=== PATIENT | male | born 1950 | race Caucasian/White ===

== ENCOUNTER → 2020-09-07 | Outpatient (CLI) | payer OTHER ==
[~2020-09-07] MED LIST: ALLOPURINOL 30300 M1 PO; ATORVASTATIN CA80 MG PO; CEPHALEXIN500 MG PO; CINNAMON500 MG PO; FAMOTIDINE 20 M20 MG PO; FUROSEMIDE 40 M40 M1 PO; GABAPENTIN 100100 MG PO; LO-DOSE ASPIRIN81 M1 PO; LOSARTAN POTAS100 MG PO; MULTI VITAMIN1 EACH PO; NOVOLOG MI100 UNIT/M SUBQ; OMEGA-3 FISH1200 MG PO; POTASSIUM CHLO10 MEQ PO; VITAMIN D3100 MCG PO
== END ==
LOC: LAB 13:45
PROVIDERS: ATTEND Podiatrist
DX: Z01.812 Encounter for preprocedural laboratory examination (principal); Z20.828 Contact with and (suspected) exposure to other viral communicable diseases

== ENCOUNTER 2020-09-11 10:38 | Day surgery (SDC) | payer OTHER ==
[~2020-09-11] VITALS: Ht 180.3 cm; Wt 147.4 kg
--- NOTE | ~2020-09-11 | O ---
[facility] [place] [address] OPERATIVE REPORT Name: WENDY PEARSON Room #: DEP [facility]#: [id number] Admission: 09/11/20 Attend Phys: SHUKRI Briones Discharge: 09/11/20 Date of : 50 Report #: [id number] THIS REPORT FOR: cc: JADEN MEI Physician not on staff Nathanael Villanueva DPM ~ CC: JADEN Villanueva Physician staff DATE OF SERVICE: 09/11/2020 SURGEON: Nathanael Villanueva DPM. PREOPERATIVE DIAGNOSIS: Osteomyelitis, left foot. POSTOPERATIVE DIAGNOSIS: Osteomyelitis, left foot. PROCEDURE: Amputation of first toe and first metatarsal, left foot. ANESTHESIA: General endotracheal. HEMOSTASIS: Ankle tourniquet 250 mmHg. ESTIMATED BLOOD LOSS: Less than 5 mL. COMPLICATIONS: None. DESCRIPTION OF PROCEDURE: As follows: The patient was taken to the OR in satisfactory condition and placed on the table in the supine position. Following satisfactory administration of general endotracheal intubation anesthesia, a total of 15 mL of a 50:50 mixture of 1% plain lidocaine and 0.5% plain Marcaine was used around the first metatarsocuneiform joint and first toe in divided doses of the left foot. A well-padded ankle tourniquet was placed just proximal to the left ankle. The foot was then prepped and draped in the usual sterile manner. An Esmarch bandage was used to exsanguinate the left foot and the ankle tourniquet was inflated to 250 mmHg. Attention was then directed to the first toe where 2 semielliptical incisions converging on the dorsal and plantar aspect of the toe was made. The incision was deepened through sharp and blunt dissection. All bleeders were clamped and bovied as deemed necessary. The incision was carried down through the subcutaneous tissue to the level of the deep fascia. The extensor and flexor tendons were identified. They were retracted as distally as possible and transected proximally. The collateral ligaments on the medial and lateral aspect of the digit were transected. The toe was disarticulated and the toe was passed from the table. A linear incision was then made on the dorsal aspect of the left first metatarsal corresponding to [facility] [address] [place] [address] OPERATIVE REPORT Name: WENDY PEARSON Room #: DEP [employer]#: [id number] Admission: 09/11/20 Attend Phys: SHUKRI Briones Discharge: 09/11/20 Date of : 50 Report #: [id number] the previous scar. The incision was deepened through sharp and blunt dissection and all bleeders were clamped and bovied as deemed necessary. The incision was carried down to the level of bone medial to the course of the extensor tendon. It was noted that the bone was soft in nature and significant dense scar tissue was noted. The tissue was reflected sharply from the bone and both the medial, lateral and plantar aspects. The dissection was carried down to the first metatarsocuneiform joint where an osteotome was used to deglove the soft tissue attachments around this joint. Sharp dissection was continued to free the first metatarsal completely. The first metatarsal was removed in toto and passed from the table, taking care to preserve the normal anatomy in the area. Redundant skin was noted on the plantar medial aspect. This was modified by resecting any potentially nonviable tissue and skin. Adequate closure of the incision was appreciated. A dog ear on the distal plantar aspect of the incision was modified to create a smooth linear incision, approximately 1.5 liters of saline solution was used in a pulse lavage to flush and cleanse the surgical wound. The wound was inspected for any remaining bleeders and these were clamped and bovied as deemed necessary. No evidence of abscess or necrotic tissue was noted within the wound. The deep fascial tissue was closed using #3-0 Vicryl in a simple interrupted fashion. Subcutaneous tissue was then closed using #4-0 Vicryl in a simple interrupted manner. Skin closure was obtained using #4-0 Prolene in a continuous horizontal mattress fashion. Excellent closure of the skin incision was appreciated. The incision was dressed with Betadine-impregnated Adaptic, 4 x 4 gauze overlying Kerlix. The ankle tourniquet was released and normal vascular status returned to all remaining digits of the left foot. An Maximo bandage was then applied to the left foot and ankle. The patient tolerated the procedure and anesthesia well and left the OR in satisfactory condition with vital signs stable. By: [id number] Nathanael Villanueva DPM /thelma
[2020-09-11 11:30] VITALS: BP 132/71
[2020-09-11 15:06] VITALS: BP 132/71
--- NOTE | 2020-09-14 18:06 | PATH ---
[facility] [address] [place] [address] PATHOLOGY RPT PROCEDURE Name: GOLDY PEARSON Room #: DEP [facility] M.R.#: [id number] Admission: 09/11/20 Date of : 50 Discharge: 09/11/20 Report #: [id number] Path Case #: [id number] [facility] Accession Number: [id number] . 01 Material submitted: . toe - FIRST TOE AND FIRST METATARSAL LEFT FOOT. Modifiers: first . 01 Clinical history: . OSTEOMYELITIS LEFT FOOT . 02 Diagnosis: Toe, first toe and first metatarsal left foot, amputation: - Marked acute inflammation of the skin and subcutaneous tissue along with acute osteomyelitis of the underlying bone. - Inked margin at bone showing acute inflammation on the intact toe. - Separate fragment showing viable and unremarkable bone. (IUV/db; 09/14/2020) LBQ 09/14/2020 1537 Local . 02 Electronically signed: . Kari Armendariz MD, Pathologist NPI- [id number] . 01 Gross description: . The specimen is received in formalin, labeled "Goldy Pearson, first toe and first metatarsal". Received is an amputated digit measuring 5.7 x 4.0 x 3.8 cm and separately submitted metatarsal measuring 6.7 x 3.4 x 2.5 cm. The bone margin of the digit is slightly roughened and concave in appearance. The bone and soft tissue margins of the toe are inked black. The nail is present display in a pale martinez to brown-black appearance. The epidermal surface is pale martinez to pink-martinez and wrinkled in appearance with no grossly distinct nodules or lesions. One bone margin of the metatarsal is convex and disarticulated to roughened in appearance. The opposite bone margin is smooth and concave in appearance, and is inked black. The specimen is submitted representatively as follows: . A1-A2 full-thickness longitudinal cross-section through digit, submitted from proximal to distal aspects, to include the nail, following decalcification A3-A5 full-thickness longitudinal cross-section through metatarsal submitted from convex to concave aspects, following decalcification. (CAA; 09/13/2020) QAC/QAC 09/13/2020 1114 Local . 02 Pathologist provided ICD-10: L98.9, M86.172 . [address] [address] PATHOLOGY RPT PROCEDURE Name: GOLDY PEARSON Room #: DEP [facility] Max#: [id number] Admission: 09/11/20 Date of : 50 Discharge: 09/11/20 Report #: [id number] Path Case #: [id number] CPT . 439481, [id number] Specimen Comment: A courtesy copy of this report has been sent to [phone], [phone] Specimen Comment: [id number] Specimen Comment: Report sent to / DR MEI Performed at: [address], [place] [id number] MD Corby Espinosa MD Phone: [phone] Performed at: [address] [id number] MD Kari Armendariz MD Phone: [phone]
== END 2020-09-11 15:26 | disposition home or self-care (01) ==
LOC: OR 10:38 → TBA 10:48 → OR 12:23
PROVIDERS: ATTEND Podiatrist
DX: M86.172 Other acute osteomyelitis, left ankle and foot (principal); L98.9 Disorder of the skin and subcutaneous tissue, unspecified; I10 Essential (primary) hypertension; E11.9 Type 2 diabetes mellitus without complications; G47.30 Sleep apnea, unspecified; Z98.890 Other specified postprocedural states; Z79.899 Other long term (current) drug therapy; Z79.4 Long term (current) use of insulin; Z85.828 Personal history of other malignant neoplasm of skin; Z88.2 Allergy status to sulfonamides; Z79.82 Long term (current) use of aspirin
CPT/HCPCS: 50010; 50101; 50386; 50951; 53078; 56524; 56526; 57091; 57103; 57178; 62110; 62900; 70005